=== PATIENT | male | born 2000 | race Caucasian/White ===

== ENCOUNTER 2019-07-12 18:13 | Emergency (ER) | payer BC ==
[2019-07-12 18:49] VITALS: BP 118/65
[2019-07-12 18:57] LABS: Influenza A Molecular Negative (Negative); Influenza B Molecular Negative (Negative)
--- NOTE | 2019-07-12 19:27 | UC ---
Respiratory Complaint HPI - HPI Summary HPI Summary: Pt presents with c/o generalized malaise, cough, "burning chest", chills, fatigue, ST, X 3-4 days. Pt states that he "just doesn't feel right" - History of Current Complaint Chief Complaint: UCRespiratory Stated Complaint: FEVER,COUGH,CONGESTION Time Seen by Provider: 07/12/19 18:58 Onset/Duration: Gradual Onset, Lasting Days, Still Present, Worse Since - osnet Timing: Constant Severity Initially: Mild Severity Currently: Moderate Pain Intensity: 0 Character: Cough: Nonproductive Aggravating Factors: Deep Breaths, Recumbent Position Alleviating Factors: Nothing Associated Signs And Symptoms: Positive: Fever, URI, Nasal Congestion - Risk Factors Pulmonary Embolism Risk Factors: Negative Cardiac Risk Factors: Negative Pseudomonas Risk Factors: Negative Tuberculosis Risk Factors: Negative - Allergies/Home Medications Allergies/Adverse Reactions: Allergies Allergy/AdvReac Type Severity Reaction Status Date / Time No Known Allergies Allergy Verified 07/12/19 18:49 Home Medications: Home Medications Dm/Acetaminophen/Doxylamine [Vicks Nyquil Liquicaps] 2 cap PO Q6H PRN 07/12/19 [ History Confirmed 07/12/19] PMH/Surg Hx/FS Hx/Imm Hx Previously Healthy: Yes - Surgical History Surgical History: Yes Surgery Procedure, Year, and Place: collar bone fx plate, vertebrae L1 fx with 2 plates - Family History Known Family History: Positive: Cardiac Disease - Social History Occupation: Student - [employer] Lives: Dormitory/Roommates Alcohol Use: Weekly Alcohol Amount: 10 Substance Use Type: None Smoking Status (MU): Never Smoked Tobacco Have You Smoked in the Last Year: No - Immunization History Vaccination Up to Date: Yes Review of Systems All Other Systems Reviewed And Are Negative: Yes Constitutional: Positive: Fever, Chills, Fatigue Skin: Positive: Negative Eyes: Positive: Negative ENT: Positive: Sore Throat Respiratory: Positive: Cough Cardiovascular: Positive: Negative Gastrointestinal: Positive: Negative Genitourinary: Positive: Negative Motor: Positive: Negative Neurovascular: Positive: Negative Musculoskeletal: Positive: Myalgia Neurological/Mental Status: Positive: Other - fatigued Psychological: Positive: Negative Is Patient Immunocompromised?: No Physical Exam Triage Information Reviewed: Yes Appearance: Ill-Appearing Vital Signs: Initial Vital Signs Temp 99.6 F 07/12/19 18:39 Pulse 81 07/12/19 18:39 Resp 18 07/12/19 18:39 BP 118/65 07/12/19 18:39 Pulse Ox 99 07/12/19 18:39 Vital Signs Reviewed: Yes Eye Exam: Normal ENT: Positive: Nasal congestion Dental Exam: Normal Neck exam: Normal Respiratory: Positive: Decreased breath sounds Cardiovascular Exam: Normal Musculoskeletal Exam: Normal Neurological Exam: Normal Psychological Exam: Normal Skin Exam: Normal Diagnostics - Radiology No standard instances Radiology Interpretation Completed By: ED Physician - positive for pneumonia Respiratory Course/Dx - Differential Dx/Diagnosis Differential Diagnosis/HQI/PQRI: Bronchitis, Influenza Provider Diagnosis: Pneumonia Discharge ED - Sign-Out/Discharge Documenting (check all that apply): Patient Departure All imaging exams completed and their final reports reviewed: No - Discharge Plan Condition: Stable Disposition: HOME Prescriptions: Albuterol HFA INHALER* [Ventolin HFA Inhaler*] 1 - 2 puff INH Q4H PRN #1 mdi PRN Reason: Sob/Wheezing Azithromycin TAB* [Zithromax TAB (Z-OMER) 250 mg #6 tabs] 2 tab PO .TODAY, THEN 1 DAILY #1 omer predniSONE 10 mg TAB [Deltasone 10 MG TAB*] 30 mg PO DAILY #18 tab Patient Education Materials: Pneumonia (ED) Forms: *School Release Referrals: [facility] [Outside] No Primary Care Phys,NOPCP [Primary Care Provider] - - Billing Disposition and Condition Condition: STABLE Disposition: Home
--- NOTE | 2019-07-13 09:23 | UC ---
- Progress Note Progress Note: chest xray report : IMPRESSION: NO EVIDENCE FOR ACTIVE CARDIOPULMONARY DISEASE. Course/Dx - Diagnoses Provider Diagnoses: Pneumonia Discharge ED - Sign-Out/Discharge Documenting (check all that apply): Patient Departure All imaging exams completed and their final reports reviewed: Yes - Discharge Plan Condition: Stable Disposition: HOME Prescriptions: Albuterol HFA INHALER* [Ventolin HFA Inhaler*] 1 - 2 puff INH Q4H PRN #1 mdi PRN Reason: Sob/Wheezing Azithromycin TAB* [Zithromax TAB (Z-OMER) 250 mg #6 tabs] 2 tab PO .TODAY, THEN 1 DAILY #1 omer predniSONE 10 mg TAB [Deltasone 10 MG TAB*] 30 mg PO DAILY #18 tab Patient Education Materials: Pneumonia (ED) Forms: *School Release Referrals: [facility] [Outside] No Primary Care Phys,NOPCP [Primary Care Provider] - - Billing Disposition and Condition Condition: STABLE Disposition: Home
== END 2019-07-12 20:31 | disposition home or self-care (01) ==
LOC: UCCORT 18:13
DX: J18.9 Pneumonia, unspecified organism (principal); J02.9 Acute pharyngitis, unspecified
CPT/HCPCS: 36415; 71046; 86308; 87651; 99202; G0463